=== PATIENT | female | born 1945 | race Caucasian/White ===

== ENCOUNTER → 2024-01-14 09:54 | Outpatient (REF) | payer MEDICARE, SELFPAY ==
[2024-01-14 10:38] LABS: % Basophils 0.7 % (0-2); % Eosinophils 3.4 % (0-6); % Immature Granulocytes 0.2 % (0-0.5); % Lymphocytes 22.6 % (20.5-51.1); % Monocytes 8.6 % (1.7-9.3); % Neutrophils 64.5 % (42.2-75.2); Absolute Basophils 0.1 10^3/uL (0-0.2); Absolute Eosinophils 0.3 10^3/uL (0-0.7); Absolute Monocytes 0.8 10^3/uL (0.1-0.6); Absolute Neutrophils 5.8 10^3/uL (1.4-6.5); Hematocrit 28.8 % (37.0-47.0); Hemoglobin 9.4 g/dL (12.0-16.0); Mean Corp Hgb Conc. 32.6 g/dL (33.0-37.0); Mean Corpuscular Hgb 29.8 pg (27.0-31.0); Mean Corpuscular Volume 91.4 fL (81.0-99.0); Mean Platelet Volume 9.9 fL (7.4-10.4); Nucleated Red Blood Cells % 0 %; Platelet Count 258 10^3/uL (130-400); Red Blood Cell Count 3.15 10^6/uL (4.20-5.40); Red Cell Dist. Width 12.6 % (11.5-14.5)
[2024-01-14 11:02] LABS: Blood Urea Nitrogen 43 mg/dl (7-17); Calcium 9.6 mg/dl (8.4-10.2); Carbon Dioxide 26 mmol/L (22-30); Chloride 105 mmol/L (98-107); Glucose 109 mg/dl (70-99); Magnesium 2.1 mg/dl (1.6-2.3); Phosphorus 4.1 mg/dl (2.5-4.5); Potassium 4.2 mmol/L (3.5-5.1); Sodium 140 mmol/L (135-145)
[2024-01-14 11:04] LABS: Vitamin D, 25-OH*** 30.6 ng/mL (30-80)
[2024-01-15 11:04] LABS: Intact PTH 60.6 pg/ml (13.6-85.8)
== END ==
LOC: OLABBH 09:54
PROVIDERS: ATTENDING PHYSICIAN Internal Medicine
DX: N18.32 Chronic kidney disease, stage 3b (principal); E55.9 Vitamin D deficiency, unspecified
CPT/HCPCS: 36415; 80048; 82306; 83735; 83970; 84100; 85025

== ENCOUNTER → 2024-01-20 18:07 | Outpatient (REF) | payer MEDICARE, SELFPAY ==
[2024-01-20 18:38] LABS: Protein/creatinine Ratio 0.1; Urine Protein 7 mg/dl
[2024-01-20 18:56] LABS: Microalbumin, Random Urine < 0.6 mg/dl (0.6-1.7)
== END ==
LOC: OLABBH 18:07
PROVIDERS: ATTENDING PHYSICIAN Internal Medicine; FAMILY PHYSICIAN Family Medicine
DX: N18.32 Chronic kidney disease, stage 3b (principal)
CPT/HCPCS: 82043; 82570; 84156

== ENCOUNTER → 2024-05-25 09:00 | Outpatient (REF) | payer MEDICARE, SELFPAY ==
[2024-05-26 14:21] LABS: Urine Albumin Negative (Neg - Trace); Urine Bilirubin Negative (Negative); Urine Character Clear (Clear); Urine Color Yellow; Urine Glucose Trace (Negative); Urine Ketone Negative (Negative); Urine Leukocyte 1+ (Negative); Urine Nitrite Positive (Negative); Urine Occult Blood 3+ (Negative); Urine Urobilinogen Negative (Neg - 1+)
[2024-05-26 14:38] LABS: Urine Bacteria Moderate (Negative); Urine White Cell 50-60 /HPF (0-5)
[2024-05-26 14:39] LABS: Urine Red Blood Cell 0-2 /HPF (0-2); Urine Squamous Cell 16-20 /LPF (Few)
== END ==
LOC: OLABBH 09:00
PROVIDERS: ATTENDING PHYSICIAN Family Medicine
DX: R30.0 Dysuria (principal)
CPT/HCPCS: 81003; 81015

== ENCOUNTER 2024-05-29 17:24 | Emergency (ER) | payer MEDICARE, SELFPAY ==
[2024-05-29 17:26] VITALS: BP 155/63
--- NOTE | 2024-05-29 19:45 | ED.GENMED ---
History of Present Illness
General
Chief Complaint: Fall
Time Seen by Provider: 05/29/24 17:42
History of Present Illness
History of Present Illness:
78-year-old female with history of dementia presenting for a fall. Patient reports she was trying to grab her shoe and fell forward. Patient struck her head, unwitnessed. Unknown loss of consciousness. Patient was found on the ground with blood
around the area. Patient on arrival denies any acute complaints. Denies chest pain, difficulty breathing, weakness or lightheadedness. She denies abdominal pain or GI symptoms. She denies additional acute medical complaints.
Past History
Past History
ED Past Medical History: HTN, IDDM and Other (Dementia)
ED Past Surgical History: Other (Cataracts )
Social History
Tobacco: Non-smoker
Alcohol: None
Phy Exam
Physical Exam
Physical Exam:
General: Well-appearing, no clinical signs of dehydration, nontoxic and in no acute distress
HEENT: protecting airway, pupils equal and reactive
Head: 3 cm laceration to the left temporal region, bleeding controlled
Neck: appears supple
CV: Normal heart rate, regular rhythm
Resp: No accessory muscle use, no increased work of breathing, lungs clear to auscultation bilaterally
Abd: Soft and non-distended, no tenderness to palpation
Extremities: No deformities, no swelling, no erythema
Neuro: alert, disoriented
: deferred
Rectal: deferred
Psych: Normal affect
Skin: Intact
Course
Orders/Labs/Results
Orders:
Orders
05/29/24 17:32
CT Cervical Spine W/o Iv Contr Urgent
Comment:
Reason For Exam: fall
CT Head W/o Iv Contrast Urgent
Comment:
Reason For Exam: fall
Vital Signs
Initial and Last Documented VS:
Initial Vital Signs
Temp Pulse Resp BP Pulse Ox
97.7 F 83 20 155/63 97
05/29/24 17:26 05/29/24 17:26 05/29/24 17:26 05/29/24 17:26 05/29/24 17:26
Last Documented Vital Signs
Temp Pulse Resp BP Pulse Ox
97.7 F 83 20 155/63 97
05/29/24 17:26 05/29/24 17:26 05/29/24 17:26 05/29/24 17:26 05/29/24 17:26
Procedures
Laceration Closure
Left Temporal:
Status of Wound: clean
Size of Wound in cm: 4
Preparation: cleaned with saline
Anesthesia: 1% Lidocaine
Type of Closure: single layer closure
Skin Closure Material: 3-0 prolene
Number of sutures: 4
MDM/Problems Addressed
MDM/Problems Addressed:
78-year-old female with history of dementia presenting after a fall at nursing facility. Vital signs on arrival are normal.
On exam patient is well-appearing, awake, alert. She does have evidence of head trauma. Laceration was repaired. Please see procedure note. Otherwise no significant signs of trauma. No focal neurologic deficits. Given the fall was unwitnessed,
will obtain CT brain and C-spine imaging. Otherwise hemodynamically stable.
CT without acute process. Tetanus updated. At this time feel stable for discharge. Will provide transportation home. Return precautions discussed.
*Critical Care Note
Total Time (30-74mins, 75-104mins- exclusive of procedures): Not Applicable
ED Attending Note
-
Portions of this chart may have been created with voice recognition software.� Occasional wrong word or��sound alike� substitutions may have occurred due to the inherent limitations of voice recognition software.
Discharge Plan
Departure
Referrals:
Jovanni Diaz MD [Family Provider] -
Interventions
Interventions:
*Risk Screen - Suicide Last Done: 05/29/24 17:26
*General Assessment Last Done: 05/29/24 17:26
*Neglect/Abuse Screening Last Done: 05/29/24 17:26
ED- Fall Risk Assessment Last Done: 05/29/24 17:26
*ED COVID-19 Vaccine History Last Done: 05/29/24 17:26
ED-Musculoskeletal Assessment Last Done: 05/29/24 17:26
ED- Neurological Assessment Last Done: 05/29/24 17:26
ED-Skin Assessment Last Done: 05/29/24 17:26
Discharge Date and Time
Print Language: DIVEHI
[2024-05-29 20:02] VITALS: BP 123/100
[2024-05-29 20:03] VITALS: BP 151/61
[2024-05-29] MEDS: ADACEL 0.5 ML IM (20:53)
[2024-05-29 21:00] VITALS: BP 135/63
[2024-05-29 23:46] VITALS: BP 152/63
[2024-05-29 23:50] VITALS: BP 152/63
== END 2024-05-29 23:50 | disposition home or self-care (01) ==
LOC: EMR 17:24
PROVIDERS: EMERGENCY PHYSICIAN Student in an Organized Health Care Education/Training Program; FAMILY PHYSICIAN Family Medicine
DX: S09.90XA Unspecified injury of head, initial encounter (principal); S01.81XA Laceration without foreign body of other part of head, initial encounter; W19.XXXA Unspecified fall, initial encounter; Z23 Encounter for immunization; F03.90 Unspecified dementia, unspecified severity, without behavioral disturbance, psychotic disturbance, mood disturbance, and anxiety; I10 Essential (primary) hypertension; E11.36 Type 2 diabetes mellitus with diabetic cataract
CPT/HCPCS: 99284; 12013; 90471; 70450; 72125; 90715

== ENCOUNTER → 2024-07-25 11:28 | Outpatient (REF) | payer MEDICARE, SELFPAY ==
[2024-07-25 12:14] LABS: % Basophils 0.6 % (0-2); % Immature Granulocytes 0.5 % (0-0.5); % Lymphocytes 27.2 % (20.5-51.1); % Monocytes 7.8 % (1.7-9.3); % Neutrophils 58.9 % (42.2-75.2); Absolute Basophils 0.1 10^3/uL (0-0.2); Absolute Eosinophils 0.4 10^3/uL (0-0.7); Absolute Lymphocytes 2.2 10^3/uL (1.2-3.4); Absolute Monocytes 0.6 10^3/uL (0.1-0.6); Absolute Neutrophils 4.8 10^3/uL (1.4-6.5); Hematocrit 30.8 % (37.0-47.0); Hemoglobin 9.9 g/dL (12.0-16.0); Mean Corp Hgb Conc. 32.1 g/dL (33.0-37.0); Mean Corpuscular Hgb 29.2 pg (27.0-31.0); Mean Corpuscular Volume 90.9 fL (81.0-99.0); Mean Platelet Volume 9.9 fL (7.4-10.4); Nucleated Red Blood Cells % 0 %; Platelet Count 286 10^3/uL (130-400); Red Blood Cell Count 3.39 10^6/uL (4.20-5.40); White Blood Cell Count 8.2 10^3/uL (4.8-10.8)
[2024-07-25 12:35] LABS: Blood Urea Nitrogen 38 mg/dl (7-17); Calcium 9.3 mg/dl (8.4-10.2); Carbon Dioxide 26 mmol/L (22-30); Chloride 104 mmol/L (98-107); Glucose 130 mg/dl (70-99); Phosphorus 3.8 mg/dl (2.5-4.5); Potassium 4.8 mmol/L (3.5-5.1); Sodium 141 mmol/L (135-145)
[2024-07-25 12:50] LABS: Vitamin D, 25-OH*** 25.6 ng/mL (30-80)
[2024-07-26 11:24] LABS: Intact PTH 47.8 pg/ml (13.6-85.8)
== END ==
LOC: OLABBH 11:28
PROVIDERS: ATTENDING PHYSICIAN Family Medicine
DX: N18.32 Chronic kidney disease, stage 3b (principal); E55.9 Vitamin D deficiency, unspecified
CPT/HCPCS: 36415; 80048; 82306; 83970; 84100; 85025

== ENCOUNTER → 2025-04-24 09:43 | Outpatient (REF) | payer MEDICARE, SELFPAY ==
[2025-04-24 11:33] LABS: Hematocrit 31.5 % (37.0-47.0); Hemoglobin 10.5 g/dL (12.0-16.0); Mean Corp Hgb Conc. 33.3 g/dL (33.0-37.0); Mean Corpuscular Volume 88.2 fL (81.0-99.0); Nucleated Red Blood Cells % 0 %; Platelet Count 269 10^3/uL (130-400); Red Cell Dist. Width 12.6 % (11.5-14.5)
[2025-04-24 11:44] LABS: Blood Urea Nitrogen 44 mg/dl (7-17); Calcium 9.5 mg/dl (8.4-10.2); Carbon Dioxide 24 mmol/L (22-30); Chloride 107 mmol/L (98-107); Glucose 222 mg/dl (70-99); Potassium 4.4 mmol/L (3.5-5.1); Sodium 137 mmol/L (135-145); eGFR 32.20
[2025-04-24 11:59] LABS: Vitamin D, 25-OH*** 13.8 ng/mL (30-80)
[2025-04-24 12:12] LABS: TSH 1.78 uIU/ml (0.47-4.68)
[2025-04-24 12:39] LABS: Glycohemoglobin (HgbA1c) 9.5 % (4.0-5.6)
== END ==
LOC: OLABBH 09:43
PROVIDERS: ATTENDING PHYSICIAN Family Medicine
DX: I10 Essential (primary) hypertension (principal); E55.9 Vitamin D deficiency, unspecified; E11.36 Type 2 diabetes mellitus with diabetic cataract
CPT/HCPCS: 36415; 80048; 82306; 83036; 84443; 85025

== ENCOUNTER → 2025-08-13 10:21 | Outpatient (REF) | payer OTHER, SELFPAY | LOC: WDC 10:21 | PROVIDERS: ATTENDING PHYSICIAN Obstetrics & Gynecology | DX: N63.10 Unspecified lump in the right breast, unspecified quadrant (principal); N63.12 Unspecified lump in the right breast, upper inner quadrant | CPT/HCPCS: 76642; 77062; 77066 ==